=== PATIENT | male | born 1990 | race Asian ===

== ENCOUNTER → 2016-11-16 | Outpatient (CLI) | payer OTHER ==
--- NOTE | 2016-11-17 05:55 | REP ---
MRI brain and posterior fossa without and with IV contrast: History: Hearing loss left ear. Technique: Axial coronal imaging planes are utilized. T1 and T2-weighted sequences include turbo spin-echo, spin echo, FLAIR, diffusion weighted scans and thin section 3-D T2-weighted scans through the posterior fossa. Gadolinium enhancement dose: 15 ml of intravenous ProHance is administered. MRI findings: No bony calvarial lesion is seen. Internal auditory canals are normal and symmetric. Unremarkable seventh and eighth cranial nerves are observed. There is no evidence of CP angle cistern mass. No intercanalicular or extracanalicular abnormal gadolinium enhancement is seen. Lateral third and fourth ventricles are normal in size and position. Jeter-white differentiation pattern is normal above and below the tentorium. Diffusion weighted scan show no evidence to suggest acute ischemia. No abnormal gadolinium enhancement is appreciated. Impression: Unremarkable MRI study of the brain and posterior fossa. Normal IACs. Signed by Danie Hess MD 11/17/2016 09:08 A
== END ==
LOC: M RAD 14:20
PROVIDERS: ATTEND Otolaryngology
DX: H93.12 Tinnitus, left ear (principal)